=== PATIENT | female | born 1945 | race African-American/Black ===

== ENCOUNTER 2016-12-28 11:45 | Inpatient (IN) | payer MEDICARE, OTHER ==
[~2016-12-28] VITALS: Ht 167.6 cm; Wt 75.5 kg
--- NOTE | ~2016-12-28 | CR72 ---
[facility] A Service of [facility] RADIOLOGY TEXT RESULTS PATIENT: MARIBEL WYMAN LOCATION: [address] : 46 UNIT #: [id number] AGE: [address]: Antonio Berry MD SEX: F ORDER DR: [id number] [facility] [address] [facility]. [place], [place] [address] [id number] I MR#: [id number] Acc #: [id number] NAME: MARIBEL WYMAN : 1945 SEX: F STUDY DATE/TIME: 12/29/2016 5:23 UNIT: [facility] ROOM: [facility] STUDY DESCRIPTION: CR Chest Single View Portable Attending Physician: Antonio Berry M.D. Ordering Physician: Antonio Berry M.D. Primary Care Physician: Fabio Baer M.D. MEDICAL IMAGING REPORT This report is preliminary unless electronic signature is present EXAM AP portable chest DATE 12/29/2016 HISTORY Shortness of breath, cough, congestion and pulmonary edema. Symptoms began 2 days ago. COMPARISON AP portable chest 12/28/2016. CT chest without contrast 12/29/2016. FINDINGS Dense right basilar airspace disease is present. Lesser degree of upper lobe perihilar infiltrates persist. Trace right pleural effusion noted. Stable cardiac enlargement. Right IJ central line extends to the cavoatrial junction. No visible pneumothorax. Right shoulder replacement changes. IMPRESSION 1. Persistent right basilar consolidation with perihilar infiltrates consistent with the appearance of pneumonia without significant change from 1 day prior. 2. Stable cardiomegaly. 3. Background emphysematous changes are demonstrated, better advantage on CT chest from the same date. Dictated by... Jaqueline Benavides M.D. THIS IS AN ELECTRONICALLY VERIFIED REPORT Jaqueline Benavides M.D. at 12/30/2016 9:50 AM [facility] A Service [facility] RADIOLOGY TEXT RESULTS PATIENT: MARIBEL WYMAN LOCATION: [place] [address]-20 : 46 UNIT #: [id number] AGE: [address]: Antonio Berry MD SEX: F ORDER DR: KUSUM/breana TD: 12/29/2016 11:01 JOB #: [id number] MEDICAL IMAGING REPORT Page 1 of 1 COPY
--- NOTE | ~2016-12-28 | EKG ---
PATIENT: MARIBEL WYMAN UNIT #: [id number] Ventricular Rate: 115 BPM Atrial Rate: 115 BPM P-R Interval: 148 ms QRS Duration: 70 ms Q-T Interval: 350 ms QTC Calculation(Bezet): 484 ms P [place]: 59 degrees Calculated R [place]: -19 degrees Calculated T [place]: -66 degrees Diagnosis Line: Sinus tachycardia Diagnosis Line: Low voltage QRS Diagnosis Line: Anteroseptal infarct (cited on or before Diagnosis Line: 28-DEC-2016) Diagnosis Line: T wave abnormality, consider lateral ischemia Diagnosis Line: Abnormal ECG Diagnosis Line: When compared with ECG of 28-DEC-2016 21:44, Diagnosis Line: (unconfirmed) Diagnosis Line: No significant change was found Diagnosis Line: Confirmed by JEISON ARIZMENDI MD ([id number]) on 12/31/2016 Diagnosis Line: 7:46:13 AM INTERPRETING MD: KYLEIGH WARD
--- NOTE | ~2016-12-28 | CR72 ---
[facility] A Service of [facility] & [facility] RADIOLOGY TEXT RESULTS PATIENT: MARIBEL WYMAN LOCATION: [address] : [birth year] UNIT #: [id number] AGE: [address]: Antonio Berry MD SEX: F ORDER DR: [id number] [facility] [address] [place], [place] [address] [id number] I MR#: [id number] Acc #: [id number] NAME: MARIBEL WYMAN : 1945 SEX: F STUDY DATE/TIME: 12/31/2016 5:52 UNIT: [facility] ROOM: [facility] STUDY DESCRIPTION: CR Chest Single View Portable Attending Physician: Antonio Berry M.D. Ordering Physician: Lars Alston M.D. Primary Care Physician: Fabio Baer M.D. MEDICAL IMAGING REPORT This report is preliminary unless electronic signature is present EXAM Single view chest dated 12/31/2016 COMPARISON Single view chest dated 12/30/2016. HISTORY Shortness of air, cough, congestion, pulmonary edema for 3 days. FINDINGS Single view of the chest was obtained. New patchy dense consolidation is noted in the region of the right upper to mid lung zone and along the medial aspect of the right lower lobe. It has worsened since yesterday. Left lung is well aerated. Heart is borderline in size, stable. Right IJ approach catheter tip is in the region of the cavoatrial junction. Stable. Status post total right shoulder arthroplasty, stable. Dictated by... Scotty Ortiz M.D. THIS IS AN ELECTRONICALLY VERIFIED REPORT Scotty Ortiz M.D. at 01/01/2017 2:46 PM CPR/mjs TD: 12/31/2016 12:54 JOB #: [id number] MEDICAL IMAGING REPORT Page 1 of 1 COPY
--- NOTE | ~2016-12-28 | CR72 ---
[facility] A Service of [facility] & [facility] RADIOLOGY TEXT RESULTS PATIENT: MARIBEL WYMAN LOCATION: [facility] 326- : 46 UNIT #: [id number] AGE: [address]: Antonio Berry MD SEX: F ORDER DR: [id number] [facility] [address] [facility]. [place], [place] [address] [id number] I MR#: [id number] Acc #: [id number] NAME: MARIBEL WYMAN : 1945 SEX: F STUDY DATE/TIME: 01/03/2017 5:18 UNIT: [address] ROOM: [facility] STUDY DESCRIPTION: CR Chest Single View Portable Attending Physician: Antonio Berry M.D. Ordering Physician: Philippe Crowe M.D. Primary Care Physician: Fabio Baer M.D. MEDICAL IMAGING REPORT This report is preliminary unless electronic signature is present EXAM Chest x-ray 01/03/2017 HISTORY 71-year-old female hospital inpatient with pneumonia, COPD exacerbation. Follow up pulmonary status. TECHNIQUE AP portable chest x-ray. FINDINGS Moderate patchy airspace infiltrates in the right upper lung and right lower lung are unchanged since yesterday. Shallow lung expansion. Mild cardiomegaly is stable. Right IJ central line in good position. IMPRESSION Stable portable chest radiograph, unchanged since yesterday. Dictated by... Stefan Obregon M.D. THIS IS AN ELECTRONICALLY VERIFIED REPORT Stefan Obregon M.D. at 01/04/2017 6:06 AM KEV/cheryl TD: 01/04/2017 01:16 JOB #: [id number] MEDICAL IMAGING REPORT Page 1 of 1 COPY
--- NOTE | ~2016-12-28 | CO ---
Unit #: [id number] #: [id number] Patient: MARIBEL WYMAN [id number] [facility] [address] [place], [place] [address] [id number] I MR#: [id number] NAME: MARIBEL WYMAN ROOM: [facility] Age: 71 Sex: F Admission Date: 12/28/2016 : 1945 Attending Physician: Antonio Berry M.D. Primary Care Physician: Fabio Baer M.D. Consultation Date: 12/29/2016 CONSULTATION REPORT DICTATED FOR Dr. Lars Alston with [facility] Cardiology. REASON FOR CONSULT Shortness of breath and elevated troponin. HISTORY OF PRESENT ILLNESS The patient is a 71-year-old female, who has a history of COPD, on home O2 as needed; PE and DVT history, on Xarelto at home; hypercoagulability; obstructive sleep apnea, where she uses a CPAP 4 to 5 hours per night; GERD; osteoarthritis; anemia; hyperlipidemia; tobacco abuse of one pack per day x50 years; anxiety, and depression. The patient was admitted to [facility] originally with shortness of breath and left chest pain. At [facility], the patient's troponin was noted to be 1.3 at the max and BNP was normal at 72. While there, the patient had an acute episode where she got very short of breath and her heart rate elevated into the 170s and 180s, where the patient required adenosine. The patient showed pulmonary edema on her chest x-ray. The patient was to be transferred to [facility] for further workup and management; however, there were no beds available and the patient was transferred then to [facility]. Here, the patient has had troponin of 0.6, then 0.57, D-dimer 514, BNP 3251. EKG does show some inverted T-waves in the lateral leads, which was noted to be a change while she was at [facility] following her acute episode of shortness of breath. The patient was found to have pneumonia on a CT scan of the chest in the right lower lobe and was admitted for this. The patient was on pressors upon transfer from [facility]; however, those have been stopped and her blood pressure has been stable since. The patient went into [facility] after she had complained of some increasing shortness of breath. Over the weekend prior, she had been very active with a school reunion and then temperature was cold out and then she began to have cough as well as shortness of breath, which led to her admission to [facility]. PAST MEDICAL HISTORY 1. COPD, on home O2 as needed. 2. History of PE and DVT, on chronic Xarelto. 3. Hypercoagulability. 4. Obstructive sleep apnea, uses CPAP 4 to 5 hours at night. 5. GERD. 6. Osteoarthritis. Unit #: [id number] #: [id number] Patient: MARIBEL WYMAN 7. Anemia. 8. Hyperlipidemia. 9. Tobacco abuse. One pack per day smoker x50 years. 10. Anxiety and depression. 11. History of rectus sheath hematoma. 12. Chronic back pain and degenerative disk and joint disease of the lumbar spine. PAST SURGICAL HISTORY Includes appendectomy, right shoulder replacement in 2014, open reduction and internal fixation of the right humerus related to fracture in 04/2015, back surgery, bilateral foot surgery, right hip open reduction and internal fixation, bilateral cataract removal, left breast lumpectomy. ALLERGIES No known allergies. HOME MEDICATIONS Include Xiidra eye drops b.i.d., Viberzi 100 mg p.o. b.i.d., Dulera 5/200 two puffs b.i.d., Spiriva once a day, Forteo 600 mcg per 2.4 mL 20 mcg subcu daily, Lyrica 150 b.i.d., Percocet 10/325 one tab p.o. q.i.d., prednisone 10 mg p.o. daily, Voltaren gel 1% topically up to q.i.d., theophylline 300 mg p.o. daily, Daliresp 500 mcg p.o. daily, iron 325 mg p.o. daily, aspirin 81 mg p.o. daily, vitamin D3 5000 units p.o. daily, calcium plus vitamin D daily, Nexium 40 mg p.o. daily, Mucinex 600 mg p.o. q.12, Proventil 2 puffs q.4 hours as needed for shortness of breath, Lasix 20 mg p.o. daily, Mag-Ox 400 mg two tabs p.o. daily in the morning, Lipitor 10 mg p.o. at bedtime, Singulair 10 mg p.o. at bedtime, Singulair 10 mg p.o. daily, bisoprolol 5 mg half a tablet p.o. daily, potassium 20 mEq b.i.d., Xarelto 20 mg q.p.m., Prozac 20 mg p.o. daily, Ambien 10 mg p.o. daily. REVIEW OF SYSTEMS See HPI. PHYSICAL EXAMINATION GENERAL: This is a 71-year-old female, who is alert and oriented x3, in no apparent distress. VITAL SIGNS: Blood pressure 115/77, temperature 98.8, pulse 98, respirations 21. HEENT: Pupils are equal, round, and reactive. Oral mucosa is moist. NECK: Positive JVD. No thyromegaly. No lymphadenopathy. No carotid bruits. HEART: S1, S2. No S3 or S4. No clicks. No rubs. No murmurs. Heart size increased. LUNGS: Coarse rhonchi and rales bilateral. ABDOMEN: Soft. Bowel sounds positive. Nontender, nondistended. EXTREMITIES: No swelling. NEUROLOGICAL: No neuro deficits noted. DIAGNOSTIC STUDIES CARDIOVASCULAR STUDIES: EKG; sinus rhythm with an anterior wall NE. Echo shows akinesis of anterior apical and inferior apical wall with an EF of 10% to 15%, moderate MR, AR, OK, and TR. RVSP of 48 mmHg. LABORATORY RESULTS: Troponin peak at [facility] was 1.3, followed by 0.6, and then 0.57. White count 15.3, hemoglobin 12.6, hematocrit 39.8, Unit #: [id number] #: [id number] Patient: MARIBEL WYMAN platelets are 256. Sodium 143, potassium 4, chloride 103, CO2 of 29, glucose 137, BUN 41, creatinine 1.2, GFR 53. AST 39, ALT 46, alkaline phosphatase 77. PTT 60.1. PH 7.382, pCO2 of 49.4, PO2 of 117, bicarb 29.4. D-dimer 514. BNP 3251. Lactic 1.2. IMPRESSION 1. Acute pulmonary edema. 2. Cardiogenic shock. 3. Extensive anterior apical and inferior wall myocardial infarction. 4. Acute systolic heart failure with an EF of 10% to 15%. 5. Hyperlipidemia. 6. Right lower lobe pneumonia. 7. Chronic obstructive pulmonary disease. 8. Acute respiratory failure. 9. Tobacco abuse. 10. Acute kidney injury. 11. Supraventricular tachycardia requiring adenosine on 12/27/2016. PLAN 1. We will add fasting lipid panel to today's labs. We will start the patient on 81 mg p.o. aspirin, Lipitor 80 daily. We will start on strict I's and O's q.4 with a fluid restriction of 1800 mL per day. 2. IV Bumex 2 mg stat and start drip at 1 mg/hour. 3. IV dobutamine at 5 mcg/kg per minute. 4. Nitroglycerin paste 1 inch q.6 hours. 5. Discontinue Xarelto. Discontinue heparin drip. Start on Lovenox 1 mg/kg subcu at 12 noon and then every 12 hours. Start lisinopril 10 mg p.o. at night. 6. Total fluid restriction 1800 mL per day. 7. Strict I's and O's q.8 hours. 8. BMP and Mag in a.m. 9. Aldactone 25 mg p.o. stat and daily. 4 mg IV morphine stat. 10. EKG in the morning. 11. Further recommendations pending the patient's current course and reaction to treatment. The patient will likely need a heart catheterization during her stay here; however, we will await for patient's respiratory status to improve. Pulmonology has recommended that if the patient goes to the laborer laboratory, she needs to be taken down on BiPAP. Dr. Alston has discussed the case with the automatic embroidery machine tender. Further recommendations pending the patient's hospital course. Dictated by... MICHAEL Templeton TD: 12/29/2016 16:48 JOB #: [id number] CC: Lars Alston M.D. Unit #: [id number] #: [id number] Patient: MARIBEL WYMAN CONSULTATION REPORT Page 1 of 1 X X CONSULTATION REPORT
--- NOTE | ~2016-12-28 | HP ---
Unit #: [id number] #: [id number] Patient: MARIBEL WYMAN [id number] [address] [address] [id number] I MR#: [id number] NAME: MARIBEL WYMAN ROOM: [facility] Age: 71 Sex: F Admission Date: 12/28/2016 : 1945 Attending Physician: Antonio Berry M.D. Primary Care Physician: Fabio Baer M.D. HISTORY AND PHYSICAL CHIEF COMPLAINT Shortness of breath. HISTORY OF PRESENT ILLNESS A 71-year-old female with a past medical history of severe COPD, on home oxygen, active smoker, DVT, pulmonary embolism with hypercoagulable state in the past, anticoagulated with Xarelto, history of obstructive sleep apnea noncompliant with CPAP in the past, history of gastroesophageal reflux disease, osteoarthritis, a rectus sheath hematoma, anemia with chronic kidney disease, history of depression and anxiety, and diabetes mellitus, presents with the complaint of cough and shortness of breath and was admitted with respiratory failure. Had elevated troponin and is hypotensive. Started on pressors. I am seeing the patient at the bedside. Currently complaining of mild shortness of breath. Appears to be comfortable on BiPAP. REVIEW OF SYSTEMS Unobtainable. Patient is currently on BiPAP. ALLERGIES Gabapentin. MEDICATION As per MAR and have been reviewed. PHYSICAL EXAMINATION VITAL SIGNS: Temperature is 98, pulse 87, respirations 12, blood pressure 130/70. NEUROLOGIC: Awake, alert, oriented. No neuro deficits. HEENT: PERRLA. EOMI. NECK: Supple. No JVD. CHEST: Bilateral air entry. Bilateral mild rhonchi. GASTROINTESTINAL: Nontender, soft. Bowel sounds positive. EXTREMITIES: No edema. SKIN: No rashes. No ulcers. LYMPHATICS: No lymphadenopathy. DIAGNOSTIC STUDIES LABORATORY: Reviewed. IMAGING: Reviewed. ASSESSMENT 1. Acute hypoxic, hypercapnic respiratory failure. Unit #: [id number] #: [id number] Patient: MARIBEL WYMAN 2. Non-ST elevation myocardial infarction. 3. History of deep venous thrombosis and pulmonary embolism. 4. History of supraventricular tachycardia. 5. Questionable pneumonia. PLAN Continue patient on BiPAP support, steroids, IV antibiotics, bronchodilator, and GI and DVT prophylaxis. Wean pressors. Central line placement. Noncontrast CT of the chest. Cardiology will be consulted. BNP and 2D echo. Will monitor CVP. Patient will be closely monitored. Please see orders for detailed plans. Dictated by Eve Phillips TD: 12/28/2016 22:16 JOB #: [id number] HISTORY AND PHYSICAL Page 1 of 1 X Antonio Berry MD X HISTORY AND PHYSICAL
--- NOTE | ~2016-12-28 | A ---
[facility] Nutrition Therapy DATE: 01/02/17 Patient: MARIBEL WYMAN Physician: ALPHONSO Address: [address] [place] [address] Room/Bed: [address], Zip: [place] [id number] Admit Date: 12/28/16 Date of : [birth year] Height: 5 6 Weight: 169 77 NUTRITIONAL ASSESSMENT: REASON: LOS IN ICU PATIENT ADMITTED FOR VT, COPD EXACERBATION, PNA PMH: CHF, COPD, GERD, JOCELYN, PE, DVT Anthropometrics: HT: 66", WT: 169#, BMI: 27.3 Labs: 01/02- BUN: 39, CA: 8.0, ALB: 3.1, ALT: 46, GFR: 58.9 Meds: ZESTRIL, BUMEX, MERREM, NACL, ATIVAN, MAG-OX, MAG SULFATE, MORPHINE, KCL, PROTONIX I/O & Bowel function: Skin Integrity: INTACT. REDNESS TO COCCYX, BRUISING TO BUE Estimated Nutrition Needs: INCREASED 2' DECREASED APPETITE, CURRENT CONDITION Assessment: PATIENT IS A 71 Y/O FEMALE ADMITTED FOR VT, COPD EXACERBATION, AND PNA. DURING VISIT PATIENT DENIED ANY N/V AND STATED A POOR APPETITE BUT THAT SHE IS TRYING TO EAT. PATIENT IS CURRENTLY ON A REGULAR DIET WITH AN 1800 CC FLUID RESTRICTION. SHE ALSO RECEIVES VANILLA ENSURE TID, WHICH PATIENT STATED SHE LIKES. PATIENT'S WEIGHTS HAVE FLUCTUATED BETWEEN 159-179# SINCE ADMIT, HOWEVER WEIGHTS HAVE BEEN TAKEN FROM THE BEDSCALE. PATIENT ALSO HAS SOME GERALAIZED EDEMA TO ABDOMEN AND HAS BEEN ON BUMEX, WHICH MAY CAUSE WEIGHT FLUCTUATIONS. THIS RD OBSERVED PATIENT'S BREAKFAST TRAY AND ~75% OF TRAY WAS EATEN, HOWEVER NURSING NOTED THAT PATIENT'S DAUGHTER HAS BEEN EATING FROM PATIENT'S TRAY AT TIMES. WILL CONTINUE TO MONITOR PATIENT'S WEIGHT AND PO INTAKES. Dx: INADEQUATE NUTRIENT INTAKE R/T CURRENT CONDITION AEB DECREASED APPETITE Intervention: REGUALR DIET, 1800CC FLUID RESTRICTION, SUPPLEMENTS Monitoring, Evaluation and Goals: 1. ADEQUATE PO INTAKES >50% OF MEALS 2. PREVENT, CORRECT MICRO/MACRO NUTRIENT DEFICIENCIES 3. WEIGHTS; MAINTAIN CURRENT WEIGHT, PREVENT WEIGHT LOSS 4. LABS; WNL MONITOR: PER PROTOCOL, WEIGHTS, LABS, I/Os [facility] Therapy DATE: 01/02/17 Patient: MARIBEL WYMAN Physician: ALPHONSO Address: [address] [place] [address] Room/Bed: [address], Zip: [place] [address] Admit Date: 12/28/16 Date of : [birth year] Height: 5 6 Weight: 169 77 Recommendations: 1. CONTINUE REGULAR DIET WITH 1800CC FLUID RESTRICTION TOLERATED. CONTINUE VANILLA ENSURE TID WITH MEALS 2. ENCOURAGE ADEQUATE PO AND FLUID INTAKES 3. CONSULT RD WITH ANY FURTHER QUESTIONS OR CONCERNS RD TO F/U PER PROTOCOL AND PRN R/T PATIENT AT MILD NUTRITION RISK Respectfully, MAMTA KUMAR, RD, LD Food and Nutritional Services [facility] cc: client file
--- NOTE | ~2016-12-28 | CR72 ---
[facility] A Service of [facility] RADIOLOGY TEXT RESULTS PATIENT: MARIBEL WMYAN LOCATION: [address] : [birth year] UNIT #: [id number] AGE: [address]: Antonio Berry MD SEX: F ORDER DR: [id number] [facility] [address] [place], [place] [address] [id number] I MR#: [id number] Acc #: [id number] NAME: MARIBEL WYMAN : 1945 SEX: F STUDY DATE/TIME: 12/30/2016 7:21 UNIT: [facility] ROOM: [facility] STUDY DESCRIPTION: CR Chest Single View Portable Attending Physician: Antonio Berry M.D. Ordering Physician: Lars Alston M.D. Primary Care Physician: Fabio Baer M.D. MEDICAL IMAGING REPORT This report is preliminary unless electronic signature is present EXAM Portable chest x-ray, 12/30/16 HISTORY Congestive heart failure, , cough, congestive. Symptoms since 12/28/16. FINDINGS Radiographic of the chest is compared to CT examination and chest radiograph if 12/29/16. Right shoulder arthroplasty unchanged. Right internal jugular central venous catheter unchanged given differences in lung volumes. Stable cardiac enlargement. The pulmonary vasculature is less prominent that on the prior examination suggesting a decrease on vascular congestion. There is a decreased in generalized interstitial prominence in the lungs. This favors a decrease in interstitial edema. Left lung otherwise clear. Increased opacification at the right lung base medially. This may involve components of residual airspace edema or pneumonia at this location with superimposed atelectasis given slightly lower lung volumes than on prior chest radiograph. Continued followup to radiographic resolution is recommended. Slight blunting of the right lateral costophrenic sulcus may reflect trace pleural effusion. There is no pneumothorax. Dictated by... Waqas Cifuentes M.D. THIS IS AN ELECTRONICALLY VERIFIED REPORT Waqas Cifuentes M.D. at 12/31/2016 2:25 PM [facility] A Service of [facility] RADIOLOGY TEXT RESULTS PATIENT: MARIBEL WYMAN LOCATION: [facility]3-20 : [birth year] UNIT #: [id number] AGE: [address]: Antonio Berry MD SEX: F ORDER DR: TD: 12/30/2016 12:42 JOB #: [id number] MEDICAL IMAGING REPORT Page 1 of 1 COPY
--- NOTE | ~2016-12-28 | EKG ---
PATIENT: MARIBEL WYMAN UNIT #: [id number] Ventricular Rate: 98 BPM Atrial Rate: 98 BPM P-R Interval: 146 ms QRS Duration: 74 ms Q-T Interval: 392 ms QTC Calculation(Bezet): 500 ms P [place]: 60 degrees Calculated R [place]: -33 degrees Calculated T [place]: -72 degrees Diagnosis Line: Normal sinus rhythm Diagnosis Line: Left axis deviation Diagnosis Line: Low voltage QRS Diagnosis Line: Anteroseptal infarct (cited on or before Diagnosis Line: 28-DEC-2016) Diagnosis Line: T wave abnormality, consider lateral ischemia Diagnosis Line: Abnormal ECG Diagnosis Line: When compared with ECG of 28-DEC-2016 21:45, Diagnosis Line: (unconfirmed) Diagnosis Line: No significant change was found Diagnosis Line: Confirmed by JEISON ARIZMENDI MD ([id number]) on 12/31/2016 Diagnosis Line: 7:48:20 AM INTERPRETING MD: KYLEIGH WARD
--- NOTE | ~2016-12-28 | CT57 ---
[facility] A Service of [facility] RADIOLOGY TEXT RESULTS PATIENT: MARIBEL WYMAN LOCATION: [address] : 46 UNIT #: [id number] AGE: [address]: Antonio Berry MD SEX: F ORDER DR: [id number] [facility] [address] [facility] [place] [facility]. [place], [place] [address] [id number] I MR#: [id number] Acc #: [id number] NAME: MARIBEL WYMAN : 1945 SEX: F STUDY DATE/TIME: 12/29/2016 02:11 UNIT: [facility] ROOM: [facility] STUDY DESCRIPTION: CT Chest Wo Cont Attending Physician: Antonio Berry M.D. Ordering Physician: Antonio Berry M.D. Primary Care Physician: Fabio Baer M.D. MEDICAL IMAGING REPORT This report is preliminary unless electronic signature is present EXAM Chest CT 12/29 at 02:11. INDICATIONS Shortness of air for couple of days, worsening tonight. COPD exacerbation. Pneumonia. TECHNIQUE Axial images were obtained through the chest without contrast. Multiplanar reformats were obtained. This CT exam was performed with one or more of the following radiation dose reduction techniques: automatic exposure control, adjustment of mA and/or kV according to patient size, and iterative reconstruction. COMPARISON Comparison made with 11/19/2008. FINDINGS The patient has a right shoulder arthroplasty. There is coronary artery disease and atherosclerotic disease. There is a small amount of pleural fluid on both sides of the chest, right greater than left. No pericardial effusion. No adenopathy. There is emphysema. Lung window images are motion degraded. However, infiltrates are present in the upper lobes, right greater than left as well as to a greater degree in the right lower lobe. These findings are in keeping with pneumonia. No pneumothorax. Upper abdomen shows atherosclerotic disease. Partially visible as what is likely a right renal cyst. IMPRESSION 1. Motion degraded exam. 2. Small bilateral effusions right greater than left 3. Emphysema. [facility] A Service of [facility] RADIOLOGY TEXT RESULTS PATIENT: MARIBEL WYMAN LOCATION: [facility]20 : 46 UNIT #: [id number] AGE: [address]: Antonio Berry MD SEX: F ORDER DR: 4. Infiltrates most pronounced in the right lower lobe but to a lesser degree of both upper lobes compatible with pneumonia. 5. Cardiomegaly with prior coronary artery disease and atherosclerotic disease. 6. Right IJ line is in the SVC. Dictated by... Eulogio Mc Jr., M.D. THIS IS AN ELECTRONICALLY VERIFIED REPORT Eulogio Mc Jr., M.D. at 12/29/2016 9:17 PM DENNY/law TD: 12/29/2016 14:59 JOB #: [id number] MEDICAL IMAGING REPORT Page 1 of 1 COPY
--- NOTE | ~2016-12-28 | CR72 ---
[facility] A Service of [facility] RADIOLOGY TEXT RESULTS PATIENT: MARIBEL WYMAN LOCATION: [facility] 326 : 46 UNIT #: [id number] AGE: [address]: Antonio Berry MD SEX: F ORDER DR: [id number] [id number] [place], [place] [address] [id number] I MR#: [id number] Acc #: [id number] NAME: MARIBEL WYMAN : 1945 SEX: F STUDY DATE/TIME: 01/04/2017 4:58 [facility]: [facility] STUDY DESCRIPTION: CR Chest Single View Portable Attending Physician: Antonio Berry M.D. Ordering Physician: Antonio Berry M.D. Primary Care Physician: Fabio Baer M.D. MEDICAL IMAGING REPORT This report is preliminary unless electronic signature is present EXAM Frontal chest, 01/04/2017 INDICATIONS Congestion and shortness of air in a 71-year-old female, symptoms since December 28. Cough. Hypertension. TECHNIQUE Frontal chest compared with 01/03/2017 FINDINGS Postop changes right shoulder replacement. Right-sided central line unchanged. Cardiac silhouette stable and borderline enlarged. Moderately extensive infiltrates in the upper and lower lung zones on the right are not significantly changed. Opacities in the left lung base stable. No pneumothorax. IMPRESSION No significant change from 01/03/2017. Dictated by... Gen Stafford M.D. THIS IS AN ELECTRONICALLY VERIFIED REPORT Gen Stafford M.D. at 01/05/2017 7:33 AM LEYLA/theo TD: 01/05/2017 04:53 JOB #: [id number] MEDICAL IMAGING REPORT [facility] A Service of [facility] RADIOLOGY TEXT RESULTS PATIENT: MARIBEL WYMAN LOCATION: [facility] : 46 UNIT #: [id number] AGE: [address]: Antonio Berry MD SEX: F ORDER DR: Page 1 of 1 COPY
--- NOTE | ~2016-12-28 | CR71 ---
[facility] A Service of [facility] RADIOLOGY TEXT RESULTS PATIENT: MARIBEL WYMAN LOCATION: [facility] 326-01 : 46 UNIT #: [id number] AGE: [address]: Antonio Berry MD SEX: F ORDER DR: [id number] [facility] [address] [facility]. [place], [place] [address] [id number] I MR#: [id number] Acc #: [id number] NAME: MARIBEL WYMAN : 1945 SEX: F STUDY DATE/TIME: 01/02/2017 04:06 UNIT: [facility] ROOM: [facility] STUDY DESCRIPTION: CR Chest Single View Attending Physician: Antonio Berry M.D. Ordering Physician: Lars Alston M.D. Primary Care Physician: Fabio Baer M.D. MEDICAL IMAGING REPORT This report is preliminary unless electronic signature is present EXAM Portable chest, 01/02 at 04:06. INDICATIONS Cough, shortness of air and congestion for 5 days. FINDINGS AP portable chest compared with 01/01/2017. Cardiomegaly is stable. Left infrahilar infiltrate stable. Dense consolidation in the right upper lobe is slightly improved compatible with improving pneumonia. Right basilar pneumonia is also slightly improved. No pneumothorax. Dictated by... Eulogio Mc Jr., M.D. THIS IS AN ELECTRONICALLY VERIFIED REPORT Eulogio Mc Jr., M.D. at 01/05/2017 7:14 AM DENNY/joe TD: 01/02/2017 10:09 JOB #: [id number] MEDICAL IMAGING REPORT Page 1 of 1 COPY
--- NOTE | ~2016-12-28 | EKG ---
PATIENT: MARIBEL WYMAN UNIT #: [id number] Ventricular Rate: 121 BPM Atrial Rate: 121 BPM P-R Interval: 174 ms QRS Duration: 82 ms Q-T Interval: 322 ms QTC Calculation(Bezet): 457 ms P Clarkston: 69 degrees Calculated R [place]: 11 degrees Calculated T [place]: 28 degrees Diagnosis Line: Sinus tachycardia Diagnosis Line: Anterior and Lateral ND in evolution Diagnosis Line: * ACUTE ND Diagnosis Line: Abnormal ECG Diagnosis Line: Diagnosis Line: Confirmed by JEISON ARIZMENDI MD ([id number]) on 12/31/2016 Diagnosis Line: 7:56:21 AM INTERPRETING MD: KYLEIGH WARD
--- NOTE | ~2016-12-28 | CR72 ---
[facility] A Service of [facility] RADIOLOGY TEXT RESULTS PATIENT: MARIBEL WYMAN LOCATION: [address] : 46 UNIT #: [id number] AGE: [address]: Antonio Berry MD SEX: F ORDER DR: [id number] [facility] [address] [facility] [place], [place] [address] [id number] I MR#: [id number] Acc #: [id number] NAME: MARIBEL WYMAN : 1945 SEX: F STUDY DATE/TIME: 12/28/2016 17:52 UNIT: [facility] ROOM: [facility] STUDY DESCRIPTION: CR Chest Single View Portable Attending Physician: Antonio Berry M.D. Ordering Physician: Antonio Berry M.D. Primary Care Physician: Fabio Baer M.D. MEDICAL IMAGING REPORT This report is preliminary unless electronic signature is present EXAM Portable chest x-ray 12/28/2016 HISTORY Short of air, cough began 3 days ago. HISTORY 2 AP radiographs of the are chest presented. Comparison to chest radiograph and CT examinations 11/19/2008. Moderate cardiac enlargement increased from 2008. Pulmonary vasculature is abnormally prominent and indistinct suggesting vascular congestion. There are abnormally increased interstitial markings extending from the central lung zones into the periphery, more pronounced in the mid to upper lung zones. There is airspace disease in the bilateral infrahilar regions. Bandlike area of atelectasis at the right lung base. Obscuration of the right heart border suggesting airspace disease in the right middle lobe. Findings felt to reflect predominantly pulmonary edema, moderate in degree, with interstitial and airspace components. The airspace disease in the right middle lobe could be atelectatic in nature or reflect airspace edema or pneumonia. There is a small left pleural effusion. There is no pneumothorax. Followup to complete radiographic resolution of findings is strongly recommended. There is no acute-appearing bony abnormality. In the interval from 2008, patient has undergone right shoulder arthroplasty. Dictated by... Waqas Cifuentes M.D. THIS IS AN ELECTRONICALLY VERIFIED REPORT Waqas Cifuentes M.D. at 12/30/2016 4:57 PM SUMIT/breana [facility] A Service of [facility] RADIOLOGY TEXT RESULTS PATIENT: MARIBEL WYMAN LOCATION: [place] [address]20 : 46 UNIT #: [id number] AGE: [address]: Antonio Berry MD SEX: F ORDER DR: TD: 12/29/2016 09:32 JOB #: [id number] MEDICAL IMAGING REPORT Page 1 of 1 COPY
--- NOTE | ~2016-12-28 | EKG ---
PATIENT: MARIBEL WYMAN UNIT #: [id number] Ventricular Rate: 123 BPM Atrial Rate: 123 BPM P-R Interval: 136 ms QRS Duration: 72 ms Q-T Interval: 404 ms QTC Calculation(Bezet): 578 ms P Ora: 50 degrees Calculated R Ora: 2 degrees Calculated T Ora: 47 degrees Diagnosis Line: Sinus tachycardia Diagnosis Line: Anteroseptal infarct (cited on or before Diagnosis Line: 28-DEC-2016) Diagnosis Line: Lateral injury pattern Diagnosis Line: * ACUTE NC Diagnosis Line: Abnormal ECG Diagnosis Line: When compared with ECG of 30-DEC-2016 05:57, Diagnosis Line: (unconfirmed) Diagnosis Line: Serial changes of Anterolateral infarct Present Diagnosis Line: Confirmed by JEISON ARIZMENDI MD ([id number]) on 01/03/2017 Diagnosis Line: 3:16:55 PM INTERPRETING MD: KYLEIGH WARD
--- NOTE | ~2016-12-28 | CR72 ---
[facility] A Service of [facility] RADIOLOGY TEXT RESULTS PATIENT: MARIBEL WYMAN LOCATION: [address] : 46 UNIT #: [id number] AGE: [address]: Antonio Berry MD SEX: F ORDER DR: [id number] [facility] [address] [facility]. [place], [place] [address] [id number] I MR#: [id number] Acc #: [id number] NAME: MARIBEL WYMAN : 1945 SEX: F STUDY DATE/TIME: 01/01/2017 04:16 UNIT: [facility] ROOM: [facility] STUDY DESCRIPTION: CR Chest Single View Portable Attending Physician: Antonio Berry M.D. Ordering Physician: Philippe Crowe M.D. Primary Care Physician: Fabio Baer M.D. MEDICAL IMAGING REPORT This report is preliminary unless electronic signature is present EXAM Portable chest, 01/01 at 04:16 INDICATION Shortness of air, cough, congestion for 4 days. FINDINGS AP portable chest is compared with 12/31/2016. Heart remains enlarged. There has been marked interval worsening in right upper lobe infiltrate. There is also worsening right lower lobe infiltrate and there is increasing infiltrate in the lingula. No pneumothorax is seen. Dictated by... Eulogio Mc Jr., M.D. THIS IS AN ELECTRONICALLY VERIFIED REPORT Eulogio Mc Jr., M.D. at 01/02/2017 1:54 AM DENNY/sue TD: 01/01/2017 12:42 JOB #: [id number] MEDICAL IMAGING REPORT Page 1 of 1 COPY
--- NOTE | ~2016-12-28 | DS ---
Unit #: [id number] #: [id number] Patient: MARIBEL WYMAN [id number] [address] [id number] I MR#: [id number] NAME: MARIBEL WYMAN ROOM: [facility] Age: 71 Sex: F Admission Date: 12/28/2016 : 1945 Discharge Date: 01/05/2017 Attending Physician: Antonio Berry M.D. Primary Care Physician: Fabio Baer M.D. DISCHARGE SUMMARY REASON FOR ADMISSION Acute on chronic hypoxic respiratory failure. DISCHARGE DIAGNOSES 1. Acute on chronic hypoxic respiratory failure. 2. Extended spectrum beta-lactamase pneumonia, on day 5 of meropenem. 3. Takotsubo syndrome with ejection fraction of 10% to 15% status post left heart cath with normal coronaries. 4. Acute exacerbation of chronic obstructive pulmonary disease. 5. History of deep vein thrombosis and pulmonary embolism, on Xarelto. 6. Obstructive sleep apnea, noncompliant. 7. Gastroesophageal reflux disease. 8. Osteoarthritis. 9. Hyperlipidemia. 10. Chronic hypotension. 11. Anemia. UNDER TRIMMER Dr. Alston with cardiology. PROCEDURE Left heart cath with normal coronaries. BRIEF HOSPITAL COURSE This is a very pleasant 71-year-old female with past medical history significant for COPD and chronic hypoxic respiratory failure, on 3 liters nasal cannula, who presented to the emergency room at [facility] with acute on chronic hypoxic respiratory failure, COPD exacerbation and congestive heart failure symptoms. Patient was transferred to our facility for further evaluation and management. Patient underwent left heart cath by Dr. Alston with normal coronaries, and her echocardiogram was consistent with takotsubo syndrome phenomenon. Patient was placed on dobutamine, Bumex drip initially. However, she went in shock at some point, needing pressor support. Her sputum culture and blood culture were consistent with ESBL pneumonia, and her antibiotics were adjusted to meropenem. On January 05, 2017 she is on day 5 of meropenem. Patient required continuous BiPAP for multiple days with short breaks; however, today she is on Oxymizer. Her steroids were tapered down, Unit #: [id number] #: [id number] Patient: MARIBEL WYMAN especially with new diagnosis of Aleksandra in her mouth. Patient currently is very weak, needing extensive physical therapy. Patient to be transferred to long-term facility to continue medical management and physical therapy. DISCHARGE MEDICATIONS 1. Albuterol Mini-Nebs q.4 hours. 2. Prednisone 20 mg p.o. daily. 3. Amiodarone 200 mg p.o. daily. 4. Magnesium oxide 400 mg p.o. b.i.d. 5. Lovenox 40 mg subcutaneous daily. 6. Lyrica 150 mg p.o. daily. 7. Zofran 4 mg IV q.4 hours p.r.n. 8. Phenergan/codeine 5 mL q.6 hours p.r.n. cough. 9. Ativan 0.5 mg p.o. b.i.d. p.r.n. 10. Coreg 3.125 mg p.o. b.i.d. 11. Senokot S 1 tab p.o. b.i.d. 12. Bumex 1 mg p.o. b.i.d. 13. Mucinex 600 mg p.o. b.i.d. 14. Lipitor 20 mg p.o. at bedtime. 15. Lisinopril 5 mg p.o. daily. 16. Aspirin 81 mg p.o. daily. 17. Percocet 10/325 mg p.o. q.6 hours p.r.n. 18. Spironolactone 25 mg p.o. daily. 19. Protonix 40 mg p.o. daily. 20. Meropenem 500 mg IV q.6 hours, day 5. 21. Nystatin swish and swallow 5 mL p.o. q.6 hours. NOTE: Time spent on discharge was 42 minutes; 50% of this time was spent face to face with the patient and her family. Dictated by... Eve Leonard TD: 01/05/2017 13:32 JOB #: [id number] DISCHARGE SUMMARY Page 1 of 1 X KENYA GRAY MD DISCHARGE SUMMARY
--- NOTE | ~2016-12-28 | CR71 ---
[facility] A Service of [facility] RADIOLOGY TEXT RESULTS PATIENT: MARIBEL WYMAN LOCATION: [address] : [birth year] UNIT #: [id number] AGE: [address]: Antonio Berry MD SEX: F ORDER DR: [id number] [facility] [address] [facility]. [place], [place] [address] [id number] I MR#: [id number] Acc #: [id number] NAME: MARIBEL WYMAN : 1945 SEX: F STUDY DATE/TIME: 12/28/2016 20:16 UNIT: [facility] ROOM: [facility] STUDY DESCRIPTION: CR Chest Single View Attending Physician: Antonio Berry M.D. Ordering Physician: Antonio Berry M.D. Primary Care Physician: Fabio Baer M.D. MEDICAL IMAGING REPORT This report is preliminary unless electronic signature is present EXAM Portable chest x-ray HISTORY New central line. FINDINGS AP radiograph of the chest is presented. Comparison 12/28/2016 17:52 hours. Right internal jugular central venous catheter has placed. It terminates in superior vena cava near the cavoatrial junction. Stable changes of right shoulder arthroplasty. Stable cardiac enlargement. Pulmonary vascular congestion unchanged. Increased central interstitial markings and patchy perihilar airspace densities persist. Appearance suggests pulmonary edema with interstitial and airspace components likely cardiogenic in etiology. Linear/band-like atelectasis right lung base stable. There is no pleural effusion and no pneumothorax. Dictated by... Waqas Cifuentes M.D. THIS IS AN ELECTRONICALLY VERIFIED REPORT Waqas Cifuentes M.D. at 12/30/2016 4:57 PM SUMIT/breana TD: 12/29/2016 09:42 JOB #: [id number] MEDICAL IMAGING REPORT Page 1 of 1 COPY
[2016-12-28 17:44] LABS: ARTERIAL BLD GAS O2 SATURATION 91.7 % (90.0-100.0); ARTERIAL BLOOD GAS ALLEN TEST NORMAL; ARTERIAL BLOOD GAS ART SITE LEFT RADIAL; ARTERIAL BLOOD GAS CARBOXY HB 0.7 %sat (0.0-9.0); ARTERIAL BLOOD GAS DELIVERY BIPAP; ARTERIAL BLOOD GAS HCO3 26.3 mmol/L; ARTERIAL BLOOD GAS MET HB 1.5 %sat (0.0-2.0); ARTERIAL BLOOD GAS PCO2 53.2 mmHg (35.0-45.0); ARTERIAL BLOOD GAS pH 7.302 (7.350-7.450); ARTERIAL DRAW? YES
[2016-12-28 19:38] LABS: INR 1.1; PROTHROMBIN TIME (PATIENT) 11.6 SECONDS (10.0-11.7)
[2016-12-28 19:43] LABS: BASOPHIL% 0.1 % (0-2.5); HEMATOCRIT 38.9 % (35.0-45.0); LYMPHOCYTE# 0.5 X10e3 (1.0-3.5); LYMPHOCYTE% 3.6 % (17.0-45.0); MEAN CELL VOLUME 86.4 FL (83-96); MEAN CORPUSCULAR HEMOGLOBIN 26.7 PG (28-34); MEAN CORPUSCULAR HGB CONC 30.9 g/dL (30-36); MEAN PLATELET VOLUME 8.8 FL (6.5-11.5); MONOCYTE# 0.6 X10e3 (0-1.0); MONOCYTE% 3.9 % (3.0-12.0); NEUTROPHIL# 14.2 X10e3 (1.5-7.1); NEUTROPHIL% 92.4 % (40-75); PLATELET COUNT 267 X10e3 (140-420); RED CELL DISTRIBUTION WIDTH 14.9 % (11.0-15.5); WHITE BLOOD COUNT 15.3 X10e3 (4.0-10.5)
[2016-12-28 19:44] LABS: DIFF IND YES
[2016-12-28 20:00] LABS: ALBUMIN SERUM 2.9 g/dL (3.5-5.0); BILIRUBIN,TOTAL 0.6 mg/dL (0.2-2.0); CALCIUM SERUM 8.5 mg/dL (8.4-10.2); GLOM FILT RATE Estimated 66.1 mL/min (>60); POTASSIUM 4.3 mmol/L (3.5-5.1); PROTEIN TOTAL SERUM 5.3 g/dL (6.0-8.3)
[2016-12-28 20:02] LABS: ANISOCYTOSIS SL; PLATELET ESTIMATE NORMAL (NORMAL)
[2016-12-28 20:11] LABS: %MB 3.3 % (0.0-4.0); MB 10.5 ng/ml
[2016-12-28 20:22] LABS: PROCALCITONIN 1.1 NG/ML
[2016-12-29 01:22] LABS: %MB 3.6 % (0.0-4.0); MB 9.9 ng/ml
[2016-12-29 03:37] LABS: ARTERIAL BLD GAS O2 SATURATION 96.1 % (90.0-100.0); ARTERIAL BLOOD GAS CARBOXY HB 0.6 %sat (0.0-9.0); ARTERIAL BLOOD GAS HCO3 29.4 mmol/L; ARTERIAL BLOOD GAS MET HB 1.9 %sat (0.0-2.0); ARTERIAL BLOOD GAS PCO2 49.4 mmHg (35.0-45.0); ARTERIAL BLOOD GAS pH 7.382 (7.350-7.450)
[2016-12-29 03:38] LABS: ARTERIAL BLOOD GAS ALLEN TEST NORMAL; ARTERIAL BLOOD GAS ART SITE LEFT RADIAL; ARTERIAL BLOOD GAS DELIVERY BIPAP 18/6; ARTERIAL DRAW? YES
[2016-12-29 04:10] LABS: ALBUMIN SERUM 3.1 g/dL (3.5-5.0); BILIRUBIN,TOTAL 0.6 mg/dL (0.2-2.0); BUN/CREATININE RATIO 34.16; CALCIUM SERUM 8.6 mg/dL (8.4-10.2); CREATININE SERUM 1.2 mg/dL (0.6-1.4)
[2016-12-29 04:20] LABS: BASOPHIL% 0.2 % (0-2.5); HEMATOCRIT 39.8 % (35.0-45.0); HEMOGLOBIN 12.6 gm/dL (12.0-16.0); LYMPHOCYTE# 0.4 X10e3 (1.0-3.5); LYMPHOCYTE% 2.9 % (17.0-45.0); MEAN CELL VOLUME 85.3 FL (83-96); MEAN CORPUSCULAR HEMOGLOBIN 26.9 PG (28-34); MEAN CORPUSCULAR HGB CONC 31.6 g/dL (30-36); MEAN PLATELET VOLUME 8.7 FL (6.5-11.5); MONOCYTE# 0.5 X10e3 (0-1.0); MONOCYTE% 3.4 % (3.0-12.0); NEUTROPHIL# 14.3 X10e3 (1.5-7.1); NEUTROPHIL% 93.5 % (40-75); PLATELET COUNT 256 X10e3 (140-420); RED BLOOD COUNT 4.67 X10e (3.90-5.30); RED CELL DISTRIBUTION WIDTH 15.1 % (11.0-15.5); WHITE BLOOD COUNT 15.3 X10e3 (4.0-10.5)
[2016-12-29 04:21] LABS: DIFF IND YES
[2016-12-29 04:24] LABS: PLATELET ESTIMATE NORMAL (NORMAL)
[2016-12-29 04:25] LABS: OVALOCYTES PRESENT
[2016-12-29 12:53] LABS: CHOLESTEROL 188 mg/dL (0-200); HDL CHOLESTEROL 76 mg/dL (35-95); LDL CHOLESTEROL 87 mg/dL ([, -130]); LDL/HDL RATIO 1 RATIO (0-4); TRIGLYCERIDES 127 mg/dL (10-160)
[2016-12-30 05:54] LABS: CALCIUM SERUM 8.4 mg/dL (8.4-10.2); GLOM FILT RATE Estimated 66.1 mL/min (>60); MAGNESIUM 1.6 mg/dL (1.6-3.0)
[2016-12-30 06:00] LABS: POTASSIUM 2.8 mmol/L (3.5-5.1)
[2016-12-31 06:04] LABS: BASOPHIL# 0.1 X10e3 (0-0.3); BASOPHIL% 0.2 % (0-2.5); HEMATOCRIT 41.8 % (35.0-45.0); HEMOGLOBIN 13.3 gm/dL (12.0-16.0); LYMPHOCYTE# 0.4 X10e3 (1.0-3.5); LYMPHOCYTE% 1.8 % (17.0-45.0); MEAN CELL VOLUME 83.8 FL (83-96); MEAN CORPUSCULAR HEMOGLOBIN 26.8 PG (28-34); MEAN CORPUSCULAR HGB CONC 31.9 g/dL (30-36); MEAN PLATELET VOLUME 8.7 FL (6.5-11.5); MONOCYTE# 0.3 X10e3 (0-1.0); MONOCYTE% 1.5 % (3.0-12.0); NEUTROPHIL# 21.4 X10e3 (1.5-7.1); NEUTROPHIL% 96.5 % (40-75); PLATELET COUNT 233 X10e3 (140-420); RED BLOOD COUNT 4.99 X10e (3.90-5.30); RED CELL DISTRIBUTION WIDTH 14.5 % (11.0-15.5); WHITE BLOOD COUNT 22.2 X10e3 (4.0-10.5)
[2016-12-31 06:26] LABS: CALCIUM SERUM 8.5 mg/dL (8.4-10.2); GLOM FILT RATE Estimated 66.1 mL/min (>60); MAGNESIUM 1.8 mg/dL (1.6-3.0); POTASSIUM 3.5 mmol/L (3.5-5.1)
[2016-12-31 06:53] LABS: DIFF IND YES
[2016-12-31 07:30] LABS: PLATELET ESTIMATE NORMAL (NORMAL)
[2017-01-01 05:13] LABS: BASOPHIL# 0.1 X10e3 (0-0.3); BASOPHIL% 0.4 % (0-2.5); DIFF IND NO; HEMATOCRIT 38.2 % (35.0-45.0); HEMOGLOBIN 12.2 gm/dL (12.0-16.0); LYMPHOCYTE# 0.3 X10e3 (1.0-3.5); MEAN CELL VOLUME 84.6 FL (83-96); MEAN PLATELET VOLUME 9.2 FL (6.5-11.5); MONOCYTE# 0.2 X10e3 (0-1.0); MONOCYTE% 0.7 % (3.0-12.0); NEUTROPHIL# 31.4 X10e3 (1.5-7.1); NEUTROPHIL% 97.9 % (40-75); PLATELET COUNT 151 X10e3 (140-420); RED BLOOD COUNT 4.51 X10e (3.90-5.30); RED CELL DISTRIBUTION WIDTH 14.7 % (11.0-15.5)
[2017-01-01 07:16] LABS: CALCIUM SERUM 7.9 mg/dL (8.4-10.2); CREATININE SERUM 1.1 mg/dL (0.6-1.4); GLOM FILT RATE Estimated 58.9 mL/min (>60); MAGNESIUM 2.2 mg/dL (1.6-3.0); PHOSPHOROUS 2.8 mg/dL (2.5-4.6); POTASSIUM 3.6 mmol/L (3.5-5.1)
[2017-01-02 04:39] LABS: BASOPHIL# 0.1 X10e3 (0-0.3); BASOPHIL% 0.4 % (0-2.5); HEMATOCRIT 35.4 % (35.0-45.0); HEMOGLOBIN 11.2 gm/dL (12.0-16.0); LYMPHOCYTE# 0.2 X10e3 (1.0-3.5); LYMPHOCYTE% 0.8 % (17.0-45.0); MEAN CELL VOLUME 84.1 FL (83-96); MEAN CORPUSCULAR HEMOGLOBIN 26.5 PG (28-34); MEAN CORPUSCULAR HGB CONC 31.6 g/dL (30-36); MEAN PLATELET VOLUME 9.4 FL (6.5-11.5); MONOCYTE# 0.3 X10e3 (0-1.0); MONOCYTE% 1.3 % (3.0-12.0); NEUTROPHIL# 23.7 X10e3 (1.5-7.1); NEUTROPHIL% 97.5 % (40-75); PLATELET COUNT 129 X10e3 (140-420); RED BLOOD COUNT 4.21 X10e (3.90-5.30); RED CELL DISTRIBUTION WIDTH 14.4 % (11.0-15.5); WHITE BLOOD COUNT 24.3 X10e3 (4.0-10.5)
[2017-01-02 04:40] LABS: DIFF IND NO
[2017-01-02 05:02] LABS: BUN/CREATININE RATIO 35.45; CREATININE SERUM 1.1 mg/dL (0.6-1.4); GLOM FILT RATE Estimated 58.9 mL/min (>60); MAGNESIUM 2.4 mg/dL (1.6-3.0); POTASSIUM 3.6 mmol/L (3.5-5.1)
[2017-01-03 06:27] LABS: BASOPHIL% 0.2 % (0-2.5); HEMATOCRIT 35.7 % (35.0-45.0); HEMOGLOBIN 11.1 gm/dL (12.0-16.0); LYMPHOCYTE# 0.5 X10e3 (1.0-3.5); LYMPHOCYTE% 2.2 % (17.0-45.0); MEAN CELL VOLUME 85.3 FL (83-96); MEAN CORPUSCULAR HEMOGLOBIN 26.6 PG (28-34); MEAN CORPUSCULAR HGB CONC 31.1 g/dL (30-36); MEAN PLATELET VOLUME 10.2 FL (6.5-11.5); MONOCYTE# 0.6 X10e3 (0-1.0); MONOCYTE% 2.8 % (3.0-12.0); NEUTROPHIL# 19.3 X10e3 (1.5-7.1); NEUTROPHIL% 94.8 % (40-75); PLATELET COUNT 130 X10e3 (140-420); RED BLOOD COUNT 4.19 X10e (3.90-5.30); RED CELL DISTRIBUTION WIDTH 14.7 % (11.0-15.5); WHITE BLOOD COUNT 20.4 X10e3 (4.0-10.5)
[2017-01-03 06:31] LABS: DIFF IND NO
[2017-01-03 06:52] LABS: CALCIUM SERUM 9.7 mg/dL (8.4-10.2); GLOM FILT RATE Estimated 66.1 mL/min (>60); MAGNESIUM 2.1 mg/dL (1.6-3.0); POTASSIUM 3.1 mmol/L (3.5-5.1)
[2017-01-04 04:21] LABS: ARTERIAL BLD GAS O2 SATURATION 93.4 % (90.0-100.0); ARTERIAL BLOOD GAS CARBOXY HB 0.9 %sat (0.0-9.0); ARTERIAL BLOOD GAS HCO3 37.8 mmol/L; ARTERIAL BLOOD GAS PO2 80.8 mmHg (80.0-100); ARTERIAL BLOOD GAS pH 7.422 (7.350-7.450)
[2017-01-04 04:22] LABS: ARTERIAL BLOOD GAS ART SITE LEFT BRACHIAL; ARTERIAL BLOOD GAS DELIVERY OXYMIZER; ARTERIAL BLOOD GAS PCO2 58.1 mmHg (35.0-45.0); ARTERIAL DRAW? YES
[2017-01-04 06:00] LABS: ALBUMIN SERUM 2.5 g/dL (3.5-5.0); BILIRUBIN,TOTAL 0.2 mg/dL (0.2-2.0); GLOM FILT RATE Estimated 66.1 mL/min (>60); POTASSIUM 3.4 mmol/L (3.5-5.1); PROTEIN TOTAL SERUM 5.9 g/dL (6.0-8.3)
[2017-01-04 06:05] LABS: HEMATOCRIT 35.8 % (35.0-45.0); HEMOGLOBIN 11.3 gm/dL (12.0-16.0); MEAN CELL VOLUME 85.1 FL (83-96); MEAN CORPUSCULAR HEMOGLOBIN 26.9 PG (28-34); MEAN CORPUSCULAR HGB CONC 31.6 g/dL (30-36); RED BLOOD COUNT 4.21 X10e (3.90-5.30); RED CELL DISTRIBUTION WIDTH 14.8 % (11.0-15.5); WHITE BLOOD COUNT 11.3 X10e3 (4.0-10.5)
[2017-01-05 03:53] LABS: ARTERIAL BLD GAS O2 SATURATION 91.6 % (90.0-100.0); ARTERIAL BLOOD GAS CARBOXY HB 0.9 %sat (0.0-9.0); ARTERIAL BLOOD GAS HCO3 37.4 mmol/L; ARTERIAL BLOOD GAS MET HB 1.9 %sat (0.0-2.0); ARTERIAL BLOOD GAS PCO2 58.5 mmHg (35.0-45.0); ARTERIAL BLOOD GAS pH 7.415 (7.350-7.450)
[2017-01-05 03:54] LABS: ARTERIAL BLOOD GAS ART SITE LEFT BRACHIAL; ARTERIAL BLOOD GAS DELIVERY OXYMIZER; ARTERIAL DRAW? YES
[2017-01-05 10:36] LABS: BUN/CREATININE RATIO 45.71; CALCIUM SERUM 9.5 mg/dL (8.4-10.2); CREATININE SERUM 0.7 mg/dL (0.6-1.4); GLOM FILT RATE Estimated 101.7 mL/min (>60); POTASSIUM 4.8 mmol/L (3.5-5.1)
== END 2017-01-05 21:45 | DRG 280 ==
LOC: CEDOF 11:45 → CICCU3 17:26 → CEDOF 17:26 → C3A PCU 01-03 12:44
PROVIDERS: Internal Medicine; Internal Medicine Cardiovascular Disease; Internal Medicine Pulmonary Disease
PROC: B24BZZZ Ultrasonography of Heart with Aorta (ICD-10-PCS; 2016-12-28)
PROC: 4A023N7 Measurement of Cardiac Sampling and Pressure, Left Heart, Percutaneous Approach (ICD-10-PCS; principal; 2016-12-31)
PROC: B215YZZ Fluoroscopy of Left Heart using Other Contrast (ICD-10-PCS; 2016-12-31)
PROC: B211YZZ Fluoroscopy of Multiple Coronary Arteries using Other Contrast (ICD-10-PCS; 2016-12-31)
DX: I21.4 Non-ST elevation (NSTEMI) myocardial infarction (principal); J96.21 Acute and chronic respiratory failure with hypoxia; R57.0 Cardiogenic shock; I50.21 Acute systolic (congestive) heart failure; J18.8 Other pneumonia, unspecified organism; I42.8 Other cardiomyopathies; N17.9 Acute kidney failure, unspecified; I13.0 Hypertensive heart and chronic kidney disease with heart failure and stage 1 through stage 4 chronic kidney disease, or unspecified chronic kidney disease; I95.89 Other hypotension; J44.0 Chronic obstructive pulmonary disease with (acute) lower respiratory infection; J44.1 Chronic obstructive pulmonary disease with (acute) exacerbation; I51.81 Takotsubo syndrome; I47.1 Supraventricular tachycardia; E11.22 Type 2 diabetes mellitus with diabetic chronic kidney disease; Z99.81 Dependence on supplemental oxygen; Z16.12 Extended spectrum beta lactamase (ESBL) resistance; B96.20 Unspecified Escherichia coli [E. coli] as the cause of diseases classified elsewhere; G47.33 Obstructive sleep apnea (adult) (pediatric); K21.9 Gastro-esophageal reflux disease without esophagitis; M19.90 Unspecified osteoarthritis, unspecified site; E78.5 Hyperlipidemia, unspecified; D64.9 Anemia, unspecified; F17.200 Nicotine dependence, unspecified, uncomplicated; N18.9 Chronic kidney disease, unspecified; E87.6 Hypokalemia; E83.42 Hypomagnesemia; Z86.711 Personal history of pulmonary embolism; Z86.718 Personal history of other venous thrombosis and embolism; Z79.01 Long term (current) use of anticoagulants; Z91.19 Patient's noncompliance with other medical treatment and regimen
CPT/HCPCS: 36600; 71010; 71250; 80048; 80053; 80061; 80200; 82308; 82550; 82553; 82803; 82947; 83605; 83735; 83880; 84100; 84132; 84484; 85025; 85027; 85379; 85610; 85730; 87040; 87070; 87077; 87186; 87205; 93005; 93306; 94640; 94660; 94760; 94761; 97110; 97116; 97162; 97166; 97530; 97535; 99152; 99153; C1769; C1887; C1894; G8978-GP; G8979-GP; G8980-GP; G8987-GO; G8988-GO; J0282; J0692; J0696; J1250; J1644; J1650; J1940; J2060; J2185; J2250; J2270; J2370; J2920; J2930; J3010; J3260; J3370; J3475